=== PATIENT | male | born 1950 | race African-American/Black ===

== ENCOUNTER 2024-07-12 08:31 | Emergency (ER) | payer BC ==
[~2024-07-12] VITALS: Ht 185.4 cm; Wt 89.0 kg
[2024-07-12 08:32] VITALS: O2SAT 100
[2024-07-12 08:47] VITALS: BP 185/96; PULSE 86; RESP 18; TEMP 98.8; O2SAT 99
[2024-07-12 12:12] LABS: HEMATOCRIT. 46.3 % (42.0-52.0); HEMOGLOBIN. 14.7 g/dL (14.0-18.0); MEAN CORPUSCULAR HEMOGLOBIN 28.9 pg (28.0-32.0); MEAN CORPUSCULAR HGB CONC 31.8 g/dL (31.0-37.0); RED BLOOD CELL COUNT 5.08 mill/uL (4.7-6.1); RED CELL DISTRIBUTION WIDTH 14.7 % (11.6-14.6)
[2024-07-12 12:18] LABS: CHLORIDE 109 mEq/L (98-107); SODIUM 138 mEq/L (136-145)
[2024-07-12 12:19] LABS: CALCIUM 9.5 mg/dL (8.7-10.4); CARBON DIOXIDE 20 mEq/L (21-32)
[2024-07-12 12:24] LABS: CREATININE 1.1 mg/dL (0.6-1.3); GLUCOSE 90 mg/dL (70-105); UREA NITROGEN BLOOD 11 mg/dL (9-23)
[2024-07-12] MEDS: ACETAZOLAMIDE SODIUM 500MG/VIAL IV ONE (13:53)
[2024-07-12] MEDS ORDERED: TRYPAN BLUE 0.5 ML DISP.SYRIN IO ONE (15:01)
[2024-07-12] MEDS ORDERED: TRIAMCINOLONE ACETONIDE 40MG/ML 1ML VIAL ONE (15:02)
[2024-07-12] MEDS ORDERED: PROPOFOL 200MG/20ML VIAL IV ONE (15:06)
[2024-07-12 17:27] LABS: PLATELET ESTIMATE NORMAL
[2024-07-12 17:28] LABS: MEAN PLATELET VOLUME 11.5 fl (7.4-10.4); PLATELET 187 x1000/uL (130-400)
[2024-07-12 17:29] LABS: GIANT PLATELETS 1+
== END 2024-07-12 13:30 | disposition admitted as inpatient to this hospital (09) ==
LOC: ER 08:31
DX: H40.9 Unspecified glaucoma (principal); H25.13 Age-related nuclear cataract, bilateral; Z79.899 Other long term (current) drug therapy; Z88.0 Allergy status to penicillin; Z90.49 Acquired absence of other specified parts of digestive tract
CPT/HCPCS: 66180; 80048; 85025; 36415; 96374; 99284; Q9957; J2704; J1120; J3301; Z7610 ×11; 99283; C1783